=== PATIENT | male | born 1980 | race Two or more races ===

== ENCOUNTER 2020-07-10 01:50 | Emergency (ER) | payer SELFPAY ==
[~2020-07-10] VITALS: Ht 167.6 cm; Wt 80.0 kg
[2020-07-10 02:14] VITALS: BP 120/100
[2020-07-10] MEDS ORDERED: HYDROCODONE/ACETAMINOPHEN 5/325MG TABLET PO STA (02:27)
[2020-07-10] MEDS ORDERED: KETOROLAC 60MG/2ML VIAL IM STA (02:27)
[2020-07-10 04:17] LABS: CHLORIDE 108 mEq/L (98-107)
[2020-07-10 04:22] LABS: BASOPHILS % 0.4 % (0.0-2.0); EOSINOPHILS % 0.3 % (0.0-5.0); HEMATOCRIT. 46.7 % (42.0-52.0); HEMOGLOBIN. 15.8 g/dL (14.0-18.0); LYMPHOCYTES % 11.8 % (20.0-50.0); MEAN PLATELET VOLUME 8.3 fl (7.4-10.4); MONOCYTES % 5.6 % (2.0-8.0); NEUTROPHILS % 81.9 % (40.0-76.0); PLATELET 273 x1000/uL (130-400); RED BLOOD CELL COUNT 5.43 mill/uL (4.7-6.1); RED CELL DISTRIBUTION WIDTH 13.9 % (11.6-14.6)
[2020-07-10 07:00] LABS: CLARITY URINE TURBID (CLEAR); COLOR URINE DARK YELLOW (YELLOW); KETONES URINE TRACE (NEGATIVE); LEUKOCYTE ESTERASE URINE NEGATIVE (NEGATIVE); NITRITE URINE NEGATIVE (NEGATIVE); OCCULT BLOOD URINE TRACE (NEGATIVE); PROTEIN URINE 1+ (NEGATIVE); SPECIFIC GRAVITY URINE 1.035 (1.005-1.030)
== END 2020-07-10 07:42 | disposition home or self-care (01) ==
LOC: ER 01:50
DX: M54.5 Low back pain (principal)
CPT/HCPCS: 36415; 80053; 81003; 83690; 85025; 96372; 99283; J1885